=== PATIENT | male | born 1940 | race Caucasian/White ===

== ENCOUNTER 2019-05-11 07:58 | Emergency (ER) | payer MEDICARE, BC ==
[2019-05-11 08:39] VITALS: BP 129/81
--- NOTE | 2019-05-11 09:10 | EDM.PDOC ---
ED HPI GENERAL MEDICAL PROBLEM - General Chief Complaint: Lower Extremity Injury/Pain Stated Complaint: RIGHT KNEE PAIN Time Seen by Provider: 05/11/19 08:40 Source of Information: Reports: Patient, Family History Limitations: Reports: No Limitations - History of Present Illness INITIAL COMMENTS - FREE TEXT/NARRATIVE: 78-year-old male with right knee pain and swelling that occurred spontaneously and started 3 days ago, this morning he can barely bear weight and his pain is significant. He has no prior significant joint problems, no fevers or chills or rashes, no other joint issues other than his right knee. Onset: Gradual Duration: Day(s): (Symptoms started after working hard in the yard 3 days ago, no abrupt injury he remembers) Location: Reports: Lower Extremity, Right Associated Symptoms: Reports: No Other Symptoms. Denies: Fever/Chills, Headaches, Loss of Appetite, Malaise, Nausea/Vomiting, Shortness of Breath Right Knee Pain Score (Numeric/FACES): 1 - Related Data Allergies Allergy/AdvReac Type Severity Reaction Status Date / Time cefazolin sodium [From [facility]] Allergy Redness Verified 05/11/19 08:27 Home Meds: Home Meds Aspirin 81 mg PO DAILY 05/27/16 [History] B1/B2/Niacin/B12/Protease [B-Complex with B-12 Tablet] 1 tab PO DAILY 05/27/16 [ History] Rosuvastatin Calcium [Crestor] 10 mg PO DAILY 05/27/16 [History] Metoprolol Tartrate 1 tab PO BEDTIME 05/11/19 [History] Metoprolol Tartrate 1 tab PO DAILY 05/11/19 [History] Past Medical History HEENT History: Reports: Cataract, Impaired Vision Cardiovascular History: Reports: Bypass, CAD, Hypertension, OR, Prior Cardiac Arrest, Stents Musculoskeletal History: Reports: Other (See Below) Other Musculoskeletal History: psoriatic arthritis Dermatologic History: Reports: Psoriasis - Past Surgical History HEENT Surgical History: Reports: Cataract Surgery, Tonsillectomy Cardiovascular Surgical History: Reports: Carotid Stents, Coronary Artery Bypass , Other (See Below) Other Cardiovascular Surgeries/Procedures: repair of perforation of ventricle. Social & Family History - Family History Musculoskeletal: Reports: Arthritis Other Oncologic Family History: throat cancer - Tobacco Use Smoking Status *Q: Never Smoker - Alcohol Use Days Per Week of Alcohol Use: 2 Number of Drinks Per Day: 1 Total Drinks Per Week: 2 - Recreational Drug Use Recreational Drug Use: No Review of Systems - Review of Systems Review Of Systems: See Below Constitutional: Denies: Fever Respiratory: Reports: No Symptoms Cardiovascular: Reports: No Symptoms, Other (Has known coronary artery disease and intermittent stable angina) GI/Abdominal: Denies: Nausea, Vomiting Skin: Denies: Erythema Neurological: Denies: Headache, Paresthesia Psychiatric: Reports: No Symptoms ED EXAM, GENERAL - Physical Exam Exam: See Below Exam Limited By: No Limitations General Appearance: Alert, No Apparent Distress, Other (Fairly comfortable when his leg is still and is not wearing bearing weight) Head: Atraumatic Respiratory/Chest: No Respiratory Distress Neurological: Alert, Oriented Psychiatric: Normal Affect, Normal Mood Skin Exam: Warm, Dry, Other (No erythema around the knee) Course - Vital Signs Last Recorded V/S: Last Vital Signs Temp 95.1 F L 05/11/19 08:38 Pulse 66 05/11/19 08:38 Resp 16 05/11/19 08:38 BP 129/81 05/11/19 08:38 Pulse Ox 96 05/11/19 08:38 - Orders/Labs/Meds Orders: Active Orders 24 hr Category Date Time Status CRYSTAL,SYNOVIAL/JOINT FL Routine Lab 05/11/19 09:47 Received CULTURE BODY FLUID + SMEAR [RM] Stat Lab 05/11/19 09:47 Results HUMAN GRANULOCYTIC SWAPNIL-HGE Urgent Lab 05/11/19 09:49 Received LYME (B. BURGDORFERI) PCR Routine Lab 05/11/19 09:47 Received LYME, TOTAL AB TEST/REFLEX Routine Lab 05/11/19 10:04 Received URIC ACID, BODY FLUID Routine Lab 05/11/19 09:47 Received URIC ACID,BODY FLUID [BF] Stat Lab 05/11/19 09:39 Ordered Labs: Laboratory Tests 05/11/19 Range/Units 09:39 Fluid Type Synovial fluid Fluid WBC 2365 /ul Fluid RBC 42 /ul Fluid Diff Comment Fluid Mononuclear Cell 22 % Fl Polymorphonucl Cell 78 % - Re-Assessments/Exams Free Text/Narrative Re-Assessment/Exam: 05/11/19 09:13 An knee x-ray was obtained that showed no bony pathology, a significant effusion was present. The area was sterilized with Betadine and prepped for a right knee joint aspiration. 05/11/19 09:38 Using a 27-gauge needle, under sterile conditions 30 mL of yellow somewhat cloudy synovial fluid was taken from the knee joint. Routine synovial testing was ordered such as cell count, Gram stain and culture, uric acid and crystals. Lyme's disease and ehrlichiosis titers were drawn and the patient was started on doxycycline 100 mg twice daily starting with a 200 mg dose now and will recheck with Dr. Garcia later this week. He was given a walker to assist with ambulation. A four-inch Francisco Javier wrap was also placed around the knee. The knee x-ray showed the effusion but otherwise looked normal. Departure - Departure Time of Disposition: 10:05 Disposition: Home, Self-Care 01 Clinical Impression: Effusion, right knee Knee pain, right Qualifiers: Chronicity: acute Qualified Code(s): M25.561 - Pain in right knee - Discharge Information Instructions: Knee Effusion, [id number] Referrals: Omari Gramajo MD [Primary Care Provider] - Forms: ED Department Discharge Care Plan Goals: Keep knee wrapped for support, take Tylenol and naproxen for pain as needed and use walker to assist with ambulation. Call the orthopedic clinic for an appointment with Dr. Garcia this week. Return sooner if worsening such as high fever or vomiting the medication. Start with 2 doses of doxycycline followed by twice daily doses until gone unless treatment changes after seeing orthopedics. - My Orders Last 24 Hours: My Active Orders 05/11/19 09:39 URIC ACID,BODY FLUID [BF] Stat 05/11/19 09:47 CRYSTAL,SYNOVIAL/JOINT FL Routine CULTURE BODY FLUID + SMEAR [RM] Stat LYME (B. BURGDORFERI) PCR Routine URIC ACID, BODY FLUID Routine 05/11/19 09:49 HUMAN GRANULOCYTIC SWAPNIL-HGE Urgent 05/11/19 10:04 LYME, TOTAL AB TEST/REFLEX Routine - Assessment/Plan Last 24 Hours: My Active Orders 05/11/19 09:39 URIC ACID,BODY FLUID [BF] Stat 05/11/19 09:47 CRYSTAL,SYNOVIAL/JOINT FL Routine CULTURE BODY FLUID + SMEAR [RM] Stat LYME (B. BURGDORFERI) PCR Routine URIC ACID, BODY FLUID Routine 05/11/19 09:49 HUMAN GRANULOCYTIC SWAPNIL-HGE Urgent 05/11/19 10:04 LYME, TOTAL AB TEST/REFLEX Routine
--- NOTE | 2019-05-11 09:22 | CRLCR ---
INDICATION: Right-sided knee pain and swelling. TECHNIQUE: Four view. FINDINGS: No fracture is seen of the right knee. The compartments appear to be preserved. Minimal spurring off the inferior patella is identified. Increased soft tissue density suprapatellar space is identified likely related to joint effusion. IMPRESSION: No acute fracture is seen of the right knee. Increased soft tissue density suprapatellar region most compatible with joint effusion. Dictated by Florencio Jung MD @ 05/11/2019 9:19:57 AM Dictated by: Florencio Jung MD @ 05/11/2019 09:20:03 (Electronically Signed)
[2019-05-14 14:09] LABS: HGE IGG TITER Negative (Neg:<1:64); HGE IGM TITER Negative (Neg:<1:20)
== END 2019-05-11 10:05 | disposition home or self-care (01) ==
LOC: JP.ED 07:58
DX: M25.461 Effusion, right knee (principal); M25.561 Pain in right knee; I25.10 Atherosclerotic heart disease of native coronary artery without angina pectoris; I10 Essential (primary) hypertension; I25.2 Old myocardial infarction; Z88.8 Allergy status to other drugs, medicaments and biological substances; Z79.82 Long term (current) use of aspirin
CPT/HCPCS: 20610; 73562-RT; 84560; 86666; 87070; 87205; 87476; 89050; 89060; 99283-25

== ENCOUNTER 2023-05-21 13:39 | Emergency (ER) | payer MEDICARE, BC ==
[2023-05-21 14:46] LABS: BASOPHILS ABSOLUTE AUTO 0.02 K/uL (0.00-0.10); BASOPHILS PERCENT AUTO 0.3 % (0.1-1.3); EOSINOPHILS ABSOLUTE AUTO 0.04 K/uL (0.00-0.40); EOSINOPHILS PERCENT AUTO 0.6 % (0.0-5.4); HEMATOCRIT 50.3 % (38.4-49.7); HEMOGLOBIN 17.1 g/dL (12.9-16.9); IMMATURE GRAN ABSOLUTE AUTO 0.02 K/uL (0.00-0.23); IMMATURE GRAN PERCENT AUTO 0.3 % (0.0-0.7); LYMPHOCYTES ABSOLUTE AUTO 0.99 K/uL (0.8-3.3); LYMPHOCYTES PERCENT AUTO 15.7 % (11.4-47.7); MEAN CORPUSCULAR HEMOGLOBIN 30.6 pg (31.6-35.5); MEAN CORPUSCULAR VOLUME 90.1 fL (81.4-99.0); MONOCYTES ABSOLUTE AUTO 0.55 K/uL (0.20-0.90); MONOCYTES PERCENT AUTO 8.7 % (3.3-12.6); NEUTROPHILS ABSOLUTE AUTO 4.69 K/uL (1.0-7.6); NEUTROPHILS PERCENT AUTO 74.4 % (40.0-78.1); PLATELET COUNT,PLT 181 K/uL (130-375); RED BLOOD CELL COUNT 5.58 M/uL (4.14-5.76); WHITE BLOOD CELL COUNT,WBC 6.3 K/uL (3.2-11.0)
[2023-05-21] MEDS ORDERED: Lisinopril 5 MG Tab PO ONE (14:54)
[2023-05-21 15:02] LABS: ANION GAP 7.1 mmol/L (5.0-14.0); BLOOD UREA NITROGEN,BUN 14 mg/dL (7-18); CALCIUM 9.6 mg/dL (8.5-10.1); CARBON DIOXIDE,CO2 31 mmol/L (21-32); CHLORIDE,CL 103 mmol/L (100-108); ESTIMATED GFR 75 mL/min (>60); GLUCOSE RANDOM 127 mg/dL (74-106); SODIUM,NA 141 mmol/L (140-148)
[2023-05-21 15:14] LABS: TROPONIN I HIGH SENSITIVITY 15.3 pg/mL (<=60.3)
[2023-05-21 16:53] VITALS: BP 134/69; PULSE 59
== END 2023-05-21 16:54 | disposition home or self-care (01) ==
LOC: JP.ED 13:39
DX: R42 Dizziness and giddiness (principal); J90 Pleural effusion, not elsewhere classified; D75.1 Secondary polycythemia; I25.10 Atherosclerotic heart disease of native coronary artery without angina pectoris; I10 Essential (primary) hypertension; I25.2 Old myocardial infarction; Z88.1 Allergy status to other antibiotic agents; Z79.82 Long term (current) use of aspirin; Z79.899 Other long term (current) drug therapy; Z95.1 Presence of aortocoronary bypass graft
CPT/HCPCS: 36415; 70450; 71045; 80048; 83880; 84484; 85025; 93005; 99284; A9270